=== PATIENT | male | born 1940 | race Caucasian/White ===

== ENCOUNTER → 2021-02-17 | Outpatient (CLI) | payer MEDICARE ==
[~2021-02-17] MED LIST: ALBUTEROL HFA INH; AMLODIPINE BESY10 MG PO; CELEBREX 200MG200 MG PO; FAMOTIDINE40 MG PO; HYDROCODON-ACE1 EAC4 PO; MEDROL4 MG PO; MONTELUKAST SOD10 MG PO; NEURONTIN 300300 MG PO; NORVASC5 MG PO; OMEPRAZOLE20 MG PO; PROAIR HFA8.5 GM INH; PROTONIX40 MG PO; SIMVASTATIN20 MG PO; TIZANIDINE HCL2 MG PO
== END ==
LOC: KOH-I 08:55
DX: M25.572 Pain in left ankle and joints of left foot (principal); M19.072 Primary osteoarthritis, left ankle and foot; M24.072 Loose body in left ankle; M25.772 Osteophyte, left ankle
CPT/HCPCS: 73610

== ENCOUNTER 2021-03-07 09:50 | Emergency (ER) | payer MEDICARE ==
[~2021-03-07 09:50] MED LIST changes: -HYDROCODON-ACE1 EAC4 PO
[2021-03-07] MEDS ORDERED: HYDROCODON-ACE1 EAC4 PO (13:59)
== END 2021-03-07 14:09 | disposition home or self-care (01) ==
LOC: ER1 09:50
DX: M16.11 Unilateral primary osteoarthritis, right hip (principal); I10 Essential (primary) hypertension
CPT/HCPCS: 73502; 99283

== ENCOUNTER → 2021-03-28 | Outpatient (CLI) | payer MEDICARE ==
[~2021-03-28] MED LIST changes: +HYDROCODON-ACE1 EAC4 PO
== END ==
LOC: KOH-I 03-25 13:45
DX: M51.37 Other intervertebral disc degeneration, lumbosacral region (principal); M54.12 Radiculopathy, cervical region; M48.061 Spinal stenosis, lumbar region without neurogenic claudication
CPT/HCPCS: 72148

== ENCOUNTER → 2021-04-28 | Outpatient (CLI) | payer MEDICARE | LOC: KOH-I 08:00 | DX: Z01.818 Encounter for other preprocedural examination (principal); M51.16 Intervertebral disc disorders with radiculopathy, lumbar region; Z98.1 Arthrodesis status | CPT/HCPCS: 72131 ==

== ENCOUNTER 2021-07-20 05:21 | Inpatient (IN) | payer MEDICARE ==
[~2021-07-20] VITALS: Ht 167.6 cm; Wt 79.4 kg
[~2021-07-20 05:21] MED LIST changes: -ALBUTEROL HFA INH; +DOCUSATE SODIU250 MG PO; +FLOMAX 0.4 MG0.4 MG PO; +LISINOPRIL10 MG PO; +NEURONTIN600 MG PO; +SINGULAIR10 MG PO; +VITAMIN D3125 MCG PO
[2021-07-20 12:33] LABS: HEMOGLOBIN 10.1 gm/dl (14.0-17.5)
--- NOTE | 2021-07-20 18:56 | NUR ---
1805 PT ARRIVED TO ICU FROM OR, VS: 102 SR, 106/50 (69), 98% O2 SAT ON 10L SIMPLE FACE MASK WITH ORAL AIRWAY IN PLACE. PT DROWSY BUT RESPONDS TO STIMULI, OPENING EYES. LEFT RADIAL ART LINE IN PLACE WNL. DRESSING TO BACK CDI, WITH HEMAVAC TO RIGHT UPPER BACK.
[2021-07-20 18:58] LABS: HEMOGLOBIN 12.7 gm/dl (14.0-17.5); RED BLOOD COUNT 4.02 M/UL (4.20-5.50); WHITE BLOOD COUNT 15.5 K/UL (4.5-11.0)
[2021-07-20 19:09] LABS: BUN/CREATININE RATIO 21 (0-10)
[2021-07-21 05:33] LABS: HEMOGLOBIN 12.8 gm/dl (14.0-17.5); RED BLOOD COUNT 4.06 M/UL (4.20-5.50); WHITE BLOOD COUNT 17.5 K/UL (4.5-11.0)
[2021-07-21 05:43] LABS: BUN/CREATININE RATIO 21 (0-10)
[2021-07-21] MEDS ORDERED: CELECOXIB200 MG PO (08:56)
[2021-07-21] MEDS ORDERED: PROAIR DIGIHAL90 MCG INH (09:28)
[2021-07-21] MEDS ORDERED: TIZANIDINE HCL2 MG PO (11:47)
[2021-07-21] MEDS ORDERED: FLONASE ALLER15.8 ML (11:47)
[2021-07-21] MEDS ORDERED: ALLEGRA ALLERGY60 MG PO (11:48)
[2021-07-22 05:30] LABS: HEMOGLOBIN 11.8 gm/dl (14.0-17.5); RED BLOOD COUNT 3.81 M/UL (4.20-5.50); WHITE BLOOD COUNT 13.9 K/UL (4.5-11.0)
[2021-07-22 05:40] LABS: BUN/CREATININE RATIO 17 (0-10)
[2021-07-23 05:48] LABS: RED BLOOD COUNT 3.22 M/UL (4.20-5.50); WHITE BLOOD COUNT 10.1 K/UL (4.5-11.0)
[2021-07-23 05:49] LABS: BUN/CREATININE RATIO 20 (0-10)
[2021-07-24 08:49] LABS: RED BLOOD COUNT 3.25 M/UL (4.20-5.50); WHITE BLOOD COUNT 8.5 K/UL (4.5-11.0)
[2021-07-24 09:28] LABS: BUN/CREATININE RATIO 16 (0-10)
[2021-07-25 06:29] LABS: HEMOGLOBIN 10.4 gm/dl (14.0-17.5); RED BLOOD COUNT 3.3 M/UL (4.20-5.50); WHITE BLOOD COUNT 8.4 K/UL (4.5-11.0)
[2021-07-25 06:49] LABS: BUN/CREATININE RATIO 17 (0-10)
--- NOTE | 2021-07-25 16:13 | NUR ---
patient pain medicine was called in by dr. harvey yesterday on patient's pharmacy
== END 2021-07-25 16:35 | disposition home health service (06) | DRG 460 ==
LOC: OR 05:21 → CCU 18:53 → M/S 07-23 16:03
PROVIDERS: ADMIT Orthopaedic Surgery
PROC: 30233L1 Transfusion of Nonautologous Fresh Plasma into Peripheral Vein, Percutaneous Approach (ICD-10-PCS; 2021-07-20)
PROC: 30233N1 Transfusion of Nonautologous Red Blood Cells into Peripheral Vein, Percutaneous Approach (ICD-10-PCS; 2021-07-20)
PROC: 0SG1071 Fusion of 2 or more Lumbar Vertebral Joints with Autologous Tissue Substitute, Posterior Approach, Posterior Column, Open Approach (ICD-10-PCS; principal; 2021-07-20 07:30)
PROC: 01NB0ZZ Release Lumbar Nerve, Open Approach (ICD-10-PCS; 2021-07-20 07:30)
DX: M48.061 Spinal stenosis, lumbar region without neurogenic claudication (principal); M47.896 Other spondylosis, lumbar region; Z20.822 Contact with and (suspected) exposure to COVID-19; M54.16 Radiculopathy, lumbar region; I10 Essential (primary) hypertension; N40.0 Benign prostatic hyperplasia without lower urinary tract symptoms; K59.00 Constipation, unspecified; G89.29 Other chronic pain; K21.9 Gastro-esophageal reflux disease without esophagitis; E78.5 Hyperlipidemia, unspecified; Z98.1 Arthrodesis status; Z96.698 Presence of other orthopedic joint implants; Z90.49 Acquired absence of other specified parts of digestive tract; Z83.3 Family history of diabetes mellitus; Z82.49 Family history of ischemic heart disease and other diseases of the circulatory system; Z80.9 Family history of malignant neoplasm, unspecified; Z84.89 Family history of other specified conditions; Z88.8 Allergy status to other drugs, medicaments and biological substances; Z88.6 Allergy status to analgesic agent
CPT/HCPCS: 36415; 72100; 72110; 76000; 80048; 85014; 85018; 85027; 86850; 86900; 86901; 86920; 94640; 94664; 94760; 97116-GP-CQ; 97161; 97166; 97535; C1713; C1762; C1781; J0690; J1040; J1100; J1200; J1644; J2370; J2405; J2704; J3010; J3370; J3475; J7030; J7040; J7120; P9016; P9017; P9045; U0003

== ENCOUNTER → 2021-09-20 | Outpatient (CLI) | payer MEDICARE ==
[~2021-09-20] MED LIST changes: +ALLEGRA ALLERGY60 MG PO; +CELECOXIB200 MG PO; +FLONASE ALLER15.8 ML; +PROAIR DIGIHAL90 MCG INH
== END ==
LOC: KOH-I 08:22
DX: M25.572 Pain in left ankle and joints of left foot (principal); M79.672 Pain in left foot
CPT/HCPCS: 73610

== ENCOUNTER 2021-09-27 14:01 | Observation (INO) | payer MEDICARE ==
[~2021-09-27] VITALS: Ht 170.2 cm; Wt 79.4 kg
[~2021-09-27 14:01] MED LIST changes: -CYCLOBENZAPRINE10 MG PO; -ELIQUIS 5 MG TAB5 MG PO; -ZOCOR20 MG PO
[2021-09-27 14:46] LABS: BUN/CREATININE RATIO 19 (0-10)
[2021-09-27 16:42] LABS: HEMOGLOBIN 12.7 gm/dl (14.0-17.5); RED BLOOD COUNT 4.32 M/UL (4.20-5.50); WHITE BLOOD COUNT 8.6 K/UL (4.5-11.0)
[2021-09-27] MEDS ORDERED: CYCLOBENZAPRINE10 MG PO (17:48)
[2021-09-27] MEDS ORDERED: ZOCOR20 MG PO (18:07)
[2021-09-28] MEDS ORDERED: ELIQUIS 5 MG TAB5 MG PO ×2 (09:24)
== END 2021-09-28 10:46 | disposition home or self-care (01) ==
LOC: ER1 14:01 → CDU 17:06 → CCU 21:43
PROVIDERS: Physician Assistant; ADMIT Internal Medicine
DX: I82.432 Acute embolism and thrombosis of left popliteal vein (principal); Z20.822 Contact with and (suspected) exposure to COVID-19; M21.962 Unspecified acquired deformity of left lower leg; I10 Essential (primary) hypertension; E78.5 Hyperlipidemia, unspecified; N40.0 Benign prostatic hyperplasia without lower urinary tract symptoms; K21.9 Gastro-esophageal reflux disease without esophagitis; G89.29 Other chronic pain; M54.9 Dorsalgia, unspecified; R00.0 Tachycardia, unspecified; Z79.899 Other long term (current) drug therapy
CPT/HCPCS: 80048; 85025; 96372; 99284; G0378; J1650; U0002

== ENCOUNTER → 2021-09-27 | Outpatient (CLI) | payer MEDICARE ==
[~2021-09-27] MED LIST changes: +CYCLOBENZAPRINE10 MG PO; +ELIQUIS 5 MG TAB5 MG PO; +ZOCOR20 MG PO
[2021-09-27 12:32] LABS: HEMOGLOBIN 12.6 gm/dl (14.0-17.5); RED BLOOD COUNT 4.29 M/UL (4.20-5.50); WHITE BLOOD COUNT 9.1 K/UL (4.5-11.0)
[2021-09-28 08:15] LABS: CHOLESTEROL, TOTAL 144 mg/dL (100-199)
[2021-09-28 08:16] LABS: A/G RATIO 1.2 (1.2-2.2); ALKALINE PHOSPHATASE, S 113 IU/L (44-121); ALT (SGPT) 13 IU/L (0-44); AST (SGOT) 16 IU/L (0-40); BILIRUBIN, TOTAL 0.5 mg/dL (0.0-1.2); BUN 20 mg/dL (8-27); BUN/CREATININE RATIO 21 (10-24); CALCIUM, SERUM 9.3 mg/dL (8.6-10.2); CARBON DIOXIDE, TOTAL 20 mmol/L (20-29); CHLORIDE, SERUM 103 mmol/L (96-106); CREATININE, SERUM 0.97 mg/dL (0.76-1.27); EGFR IF AFRICN AM 85 (>59); EGFR IF NONAFRICN AM 73 (>59); GLOBULIN, TOTAL 3.4 g/dL (1.5-4.5); GLUCOSE, SERUM 109 mg/dL (65-99); HDL CHOLESTEROL 59 mg/dL (>39); LDL CHOLESTEROL CALC 68 mg/dL (0-99); LDL/HDL RATIO 1.2 ratio (0.0-3.6); POTASSIUM, SERUM 4.8 mmol/L (3.5-5.2); PROTEIN, TOTAL, SERUM 7.4 g/dL (6.0-8.5); SODIUM, SERUM 140 mmol/L (134-144); T. CHOL/HDL RATIO 2.4 ratio (0.0-5.0); TRIGLYCERIDES 90 mg/dL (0-149)
[2021-09-29 05:09] LABS: VITAMIN D, 25-HYDROXY 86.5 ng/mL (30.0-100.0)
== END ==
LOC: LAB 12:08
PROVIDERS: Family Medicine
DX: Z01.818 Encounter for other preprocedural examination (principal); I82.409 Acute embolism and thrombosis of unspecified deep veins of unspecified lower extremity; M24.672 Ankylosis, left ankle; E78.5 Hyperlipidemia, unspecified; E55.9 Vitamin D deficiency, unspecified
CPT/HCPCS: 36415; 71046; 80053; 80061; 84439; 84443; 85027; 93926; 93970

== ENCOUNTER → 2021-10-05 | Outpatient (CLI) | payer MEDICARE ==
[~2021-10-05] MED LIST changes: +CYCLOBENZAPRINE10 MG PO; +ELIQUIS 5 MG TAB5 MG PO; +ZOCOR20 MG PO
== END ==
LOC: EXRD 15:09
DX: M25.532 Pain in left wrist (principal)
CPT/HCPCS: 73110

== ENCOUNTER → 2022-02-21 | Outpatient (CLI) | payer MEDICARE | LOC: ECHO 08:29 | DX: Z01.810 Encounter for preprocedural cardiovascular examination (principal); R94.31 Abnormal electrocardiogram [ECG] [EKG]; J30.9 Allergic rhinitis, unspecified; I08.3 Combined rheumatic disorders of mitral, aortic and tricuspid valves | CPT/HCPCS: ECHO; 93306 ==

== ENCOUNTER → 2022-02-27 | Outpatient (CLI) | payer MEDICARE ==
[~2022-02-27] MED LIST changes: +ALBUTEROL; +DICLOFENAC; +ELIQUIS5 MG PO; +FLUTICASONE; +PEPCID40 MG PO; +PERCOCET 5/325 T1 EA PO; +TIZANIDINE HCL2 M1 PO; +TIZANIDINE HCL4 MG PO; +VITAMIN B-121000 MCG PO
[2022-02-27 10:35] LABS: HEMOGLOBIN 13.2 gm/dl (14.0-17.5); RED BLOOD COUNT 4.27 M/UL (4.20-5.50)
[2022-02-27 11:12] LABS: BUN/CREATININE RATIO 17 (0-10)
== END ==
LOC: OPSV2 09:45
PROVIDERS: Podiatrist Foot & Ankle Surgery
DX: Z01.818 Encounter for other preprocedural examination (principal); I45.10 Unspecified right bundle-branch block; R94.31 Abnormal electrocardiogram [ECG] [EKG]
CPT/HCPCS: 36415; 80048; 85027; 93005

== ENCOUNTER 2022-03-03 07:45 | Observation (INO) | payer MEDICARE ==
[~2022-03-03] VITALS: Ht 167.6 cm; Wt 79.4 kg
[~2022-03-03 07:45] MED LIST changes: -PERCOCET 5/325 T1 EA PO; -TIZANIDINE HCL4 MG PO
[2022-03-04 02:44] LABS: HEMOGLOBIN 11.7 gm/dl (14.0-17.5); RED BLOOD COUNT 3.79 M/UL (4.20-5.50); WHITE BLOOD COUNT 11.6 K/UL (4.5-11.0)
[2022-03-04 03:05] LABS: BUN/CREATININE RATIO 18 (0-10)
[2022-03-04] MEDS ORDERED: PERCOCET 5/325 T1 EA PO (17:07)
[2022-03-04] MEDS ORDERED: TIZANIDINE HCL4 MG PO (17:07)
[2022-03-04] MEDS ORDERED: DOCUSATE SODIU250 MG PO (17:07)
== END 2022-03-04 18:05 | disposition home or self-care (01) ==
LOC: OR 07:45 → CCU 17:23 → OR 17:30 → CCU 17:30
PROVIDERS: Physician Assistant; ADMIT Internal Medicine
DX: M19.072 Primary osteoarthritis, left ankle and foot (principal); Q66.89 Other specified congenital deformities of feet; I82.402 Acute embolism and thrombosis of unspecified deep veins of left lower extremity; I10 Essential (primary) hypertension; E78.5 Hyperlipidemia, unspecified; K21.9 Gastro-esophageal reflux disease without esophagitis; J30.2 Other seasonal allergic rhinitis; Z79.01 Long term (current) use of anticoagulants; Z88.2 Allergy status to sulfonamides; Z88.8 Allergy status to other drugs, medicaments and biological substances
CPT/HCPCS: 36415; 73610; 76000; 80048; 85025; 96374; 96376; 97110; 97116; 97161; C1713; C1762; C1769; G0378; J0171; J0690; J1100; J1885; J2001; J2370; J2405; J2704; J2795; J3010; J3370; Q4133

== ENCOUNTER 2022-03-10 13:16 | Emergency (ER) | payer MEDICARE ==
[~2022-03-10 13:16] MED LIST changes: +PERCOCET 5/325 T1 EA PO; +TIZANIDINE HCL4 MG PO
== END 2022-03-10 17:13 | disposition home or self-care (01) ==
LOC: ER1 13:16
DX: S80.822A Blister (nonthermal), left lower leg, initial encounter (principal); I10 Essential (primary) hypertension; Z98.1 Arthrodesis status; Z86.718 Personal history of other venous thrombosis and embolism; Z88.2 Allergy status to sulfonamides; Z79.01 Long term (current) use of anticoagulants; X58.XXXA Exposure to other specified factors, initial encounter; Y83.8 Other surgical procedures as the cause of abnormal reaction of the patient, or of later complication, without mention of misadventure at the time of the procedure
CPT/HCPCS: 10160; 99283

== ENCOUNTER → 2022-03-23 | Outpatient (CLI) | payer MEDICARE | LOC: KOH-I 08:49 | DX: M25.572 Pain in left ankle and joints of left foot (principal); Z98.1 Arthrodesis status | CPT/HCPCS: 73610 ==

== ENCOUNTER → 2022-04-13 | Outpatient (CLI) | payer MEDICARE | LOC: KOH-I 08:21 | DX: M25.572 Pain in left ankle and joints of left foot (principal); M24.672 Ankylosis, left ankle | CPT/HCPCS: 73610 ==

== ENCOUNTER → 2022-05-08 | Outpatient (CLI) | payer MEDICARE | LOC: KOH-I 08:45 | DX: M25.572 Pain in left ankle and joints of left foot (principal); G89.18 Other acute postprocedural pain | CPT/HCPCS: 73610 ==